=== PATIENT | female | born 1990 | race Caucasian/White ===

== ENCOUNTER 2017-03-08 09:24 | Emergency (ER) | payer MEDICAID, OTHER | END 2017-03-08 10:45 | disposition left against medical advice (07) | LOC: SCSER 09:24 | DX: R55 Syncope and collapse (principal); R00.2 Palpitations; R03.0 Elevated blood-pressure reading, without diagnosis of hypertension; N92.6 Irregular menstruation, unspecified; F17.210 Nicotine dependence, cigarettes, uncomplicated | CPT/HCPCS: 81025 ==

== ENCOUNTER 2023-06-28 12:31 | Day surgery (SDC) | payer SELFPAY ==
[2023-06-28] MEDS ORDERED: Lidocaine 1% PF 5 ML VIAL ONE (13:08)
[2023-06-28 16:03] VITALS: TEMP 98.4
== END 2023-06-28 14:45 | disposition home or self-care (01) ==
LOC: ULT 12:31
PROVIDERS: ATTEND Otolaryngology
PROC: 0G9H3ZX Drainage of Right Thyroid Gland Lobe, Percutaneous Approach, Diagnostic (ICD-10-PCS; principal; 2023-06-28)
DX: E04.1 Nontoxic single thyroid nodule (principal); Z91.011 Allergy to milk products; Z91.013 Allergy to seafood
CPT/HCPCS: 10005; 88173